=== PATIENT | male | born 1995 | race Caucasian/White ===

== ENCOUNTER 2021-02-07 20:52 | Emergency (ER) | payer BC, SELFPAY ==
[2021-02-07] MEDS ORDERED: diphenhydrAMINE 25 MG CAP ONE (21:18)
[2021-02-07] MEDS ORDERED: predniSONE 20 MG TAB ONE (21:18)
[2021-02-07] MEDS ORDERED: Cephalexin 250 MG CAP ONE (21:18)
== END 2021-02-07 21:25 | disposition home or self-care (01) ==
LOC: NAV ERS 20:52
DX: T78.40XA Allergy, unspecified, initial encounter (principal); F17.220 Nicotine dependence, chewing tobacco, uncomplicated
CPT/HCPCS: 99283; J7512; Q0163

== ENCOUNTER 2022-09-06 14:58 | Emergency (ER) | payer BC ==
[2022-09-06] MEDS ORDERED: Oxymetazoline HCl 0.05% (30 ML BOT) ONE (15:37)
== END 2022-09-06 16:30 | disposition home or self-care (01) ==
LOC: NAV ERS 14:58
DX: R04.0 Epistaxis (principal); I10 Essential (primary) hypertension; F17.220 Nicotine dependence, chewing tobacco, uncomplicated
CPT/HCPCS: 99283